=== PATIENT | male | born 1990 | race Caucasian/White ===

== ENCOUNTER 2017-11-03 18:42 | Emergency (ER) | payer SELFPAY ==
[2017-11-03] MEDS: ACETAMINOPHEN 325 MG TAB PO (19:24)
== END 2017-11-03 20:00 | disposition home or self-care (01) ==
LOC: FTE 18:42
DX: S13.9XXA Sprain of joints and ligaments of unspecified parts of neck, initial encounter (principal); V89.2XXA Person injured in unspecified motor-vehicle accident, traffic, initial encounter
CPT/HCPCS: 72040; 72100; 99283-25